=== PATIENT | female | born 1985 | race Caucasian/White ===

== ENCOUNTER 2017-11-23 12:27 | Emergency (ER) | payer OTHER ==
[~2017-11-23] VITALS: Ht 167.6 cm; Wt 92.0 kg
[2017-11-23] MEDS ORDERED: NAPROSYN500 MG PO (15:09)
[2017-11-23] MEDS ORDERED: FLEXERIL10 MG PO (15:09)
[2017-11-23 15:21] VITALS: BP 147/86
== END 2017-11-23 15:22 | disposition home or self-care (01) ==
LOC: EME 12:27
DX: M62.830 Muscle spasm of back (principal); M47.896 Other spondylosis, lumbar region
CPT/HCPCS: 72100; 99281; 99284